=== PATIENT | female | born 1990 | race Caucasian/White ===

== ENCOUNTER 2019-03-21 21:01 | Emergency (ER) | payer OTHER ==
[2019-03-21 21:39] VITALS: BP 125/83; PULSE 92; TEMP 98.2; BMI 23.8
== END 2019-03-21 22:54 | disposition left against medical advice (07) ==
LOC: JER 21:01
DX: Z53.21 Procedure and treatment not carried out due to patient leaving prior to being seen by health care provider (principal)
CPT/HCPCS: 99281-25

== ENCOUNTER 2022-03-25 11:57 | Emergency (ER) | payer OTHER ==
[2022-03-25 12:16] VITALS: BMI 27.4
[2022-03-25] MEDS ORDERED: DEXTROSE 5%-LACTATED RINGERS 500 ML IV ONE ×2 (13:00→13:30)
[2022-03-25 13:11] VITALS: BP 102/62; PULSE 103; TEMP 98.1
[2022-03-25 13:49] LABS: EPI CELLS >36 /uL (0-25.1); HYALINE CASTS 7 /uL (0-3.1); URINE APPEARANCE CLOUDY; URINE BACTERIA 5670 /uL (0-1359); URINE BILIRUBIN 1+ (NEGATIVE); URINE COLOR DK YELLOW; URINE GLUCOSE (UA) NEGATIVE (NEGATIVE); URINE KETONE 4+ (NEGATIVE); URINE LEUK ESTERASE NEGATIVE (NEGATIVE); URINE NITRITE NEGATIVE (NEGATIVE); URINE PROTEIN 1+ (NEGATIVE); URINE WBC 15 /uL (0-25.8)
[2022-03-25 13:55] LABS: URINE RBC 20.7 /uL (0-23.9)
[2022-03-25 14:54] LABS: BASO % 0.4 % (0-2.0); EOS % 1.8 % (0-4.5); HEMATOCRIT 26.7 % (32.4-45.2); HEMOGLOBIN 8.9 GM/dL (10.7-15.3); LYMPH % 15.4 % (8-40); MCH 31.2 pg (25.7-33.7); MCHC 33.3 g/dl (32.0-36.0); MEAN CELL VOLUME 93.6 fl (80-96); MEAN PLT VOLUME 8.9 fl (7.5-11.1); MONO % 5.5 % (3.8-10.2); NEUT % 76.9 % (42.8-82.8); PLATELET COUNT 187 10^3/uL (134-434); RBC 2.86 M/mm3 (3.60-5.2); RDW 12.9 % (11.6-15.6); WHITE BLOOD COUNT 7.6 K/mm3 (4.0-10.0)
[2022-03-25 15:13] LABS: CALCIUM 8.7 mg/dL (8.5-10.1)
[2022-03-25 15:14] LABS: ALBUMIN 2.8 g/dl (3.4-5.0)
[2022-03-25 15:17] LABS: CREATININE 0.4 mg/dL (0.55-1.3)
[2022-03-25 15:18] LABS: BILIRUBIN,TOTAL 0.6 mg/dL (0.2-1); TOT PROT 5.8 g/dl (6.4-8.2)
== END 2022-03-25 15:53 | disposition home or self-care (01) ==
LOC: JER 11:57
PROC: 3E0337Z Introduction of Electrolytic and Water Balance Substance into Peripheral Vein, Percutaneous Approach (ICD-10-PCS; principal; 2022-03-25)
DX: O26.892 Other specified pregnancy related conditions, second trimester (principal); R10.9 Unspecified abdominal pain; Z3A.26 26 weeks gestation of pregnancy
CPT/HCPCS: 36415; 76775-TC; 76801-TC; 80053; 81003; 85025; 87086; 96360; 96361; 99284-25

== ENCOUNTER 2022-06-26 06:00 | Inpatient (IN) | payer OTHER ==
[2022-06-26 06:58] VITALS: BMI 27.1
[2022-06-26] MEDS ORDERED: SUCCINYLCHOLINE CHLORIDE 200 MG/10 ML SYRINGE ONE (07:58)
[2022-06-26] MEDS ORDERED: morphine SULFATE/PF 1 MG/2 ML (2cc Syringe - QUVA) ONE (07:58)
[2022-06-26] MEDS ORDERED: ePHEDrine SULFATE 50 MG/1 ML AMPULE ONE (08:01)
[2022-06-26] MEDS ORDERED: ELECTROLYTE-148 SOLN 500 ML IV ONE (08:03)
[2022-06-26] MEDS ORDERED: CITRIC ACID/SODIUM CITRATE 30 ML UNIT-DOSE CUP PO ONE (08:03)
[2022-06-26] MEDS ORDERED: ELECTROLYTE-148 SOLN 1,000 ML IV SCH (08:15)
[2022-06-26] MEDS ORDERED: SODIUM CHLORIDE 0.9% P/F 10 ML VIAL IJ ONE (09:02)
[2022-06-26] MEDS ORDERED: OXYTOCIN 10 UNITS/ML VIAL ONE (09:02)
[2022-06-26] MEDS ORDERED: ONDANSETRON 4 MG/2 ML VIAL ONE (09:02)
[2022-06-26] MEDS ORDERED: CLINDAMYCIN PHOSPHATE 900 MG/6 ML VIAL IVPB ONE (09:02)
[2022-06-26] MEDS ORDERED: METHYLERGONOVINE MALEATE 0.2 MG/1 ML AMP IM PRN (09:35)
[2022-06-26] MEDS ORDERED: IBUPROFEN 800 MG/8 ML IJ IVPB PRN (09:35)
[2022-06-26] MEDS ORDERED: ACETAMINOPHEN 325 MG TABLET (FP) PO PRN (09:35)
[2022-06-26] MEDS ORDERED: ONDANSETRON 4 MG/2 ML VIAL IVPUSH PRN (09:42)
[2022-06-26] MEDS ORDERED: morphine SULFATE/PF 1 MG/2 ML (2cc Syringe - QUVA) EP ONE (09:42)
[2022-06-26] MEDS ORDERED: OXYTOCIN 20 UNITS in 0.9% NS 20 UNIT/1,000 ML INFUS.BAG IV SCH (09:45)
[2022-06-26] MEDS: PRENATAL VITAMINS W/ FOLIC ACID TABLET (FP) PO SCH (11:17)
[2022-06-27] MEDS: IBUPROFEN 600 MG TABLET (FP) PO PRN ×3 (01:31→15:43)
[2022-06-27] MEDS: SIMETHICONE 80 MG TAB.CHEW (FP) PO PRN ×2 (01:32→23:12)
[2022-06-27] MEDS: oxyCODONE HCL 5 MG TABLET PO PRN ×3 (03:03→23:12)
[2022-06-27 08:47] LABS: BASO % 0.3 % (0-2.0); EOS % 0.8 % (0-4.5); HEMATOCRIT 32.1 % (32.4-45.2); HEMOGLOBIN 10.5 GM/dL (10.7-15.3); MCH 30.8 pg (25.7-33.7); MCHC 32.9 g/dl (32.0-36.0); MEAN CELL VOLUME 93.8 fl (80-96); MEAN PLT VOLUME 9.5 fl (7.5-11.1); MONO % 6.5 % (3.8-10.2); NEUT % 80.4 % (42.8-82.8); PLATELET COUNT 279 10^3/uL (134-434); RBC 3.42 M/mm3 (3.60-5.2); RDW 13.2 % (11.6-15.6); WHITE BLOOD COUNT 17.5 K/mm3 (4.0-10.0)
[2022-06-27] MEDS ORDERED: BISACODYL 10 MG SUPP.RECT RC PRN (09:35)
[2022-06-27] MEDS ORDERED: DIPHTH,PERTUSS(ACELL),TET 0.5 ML DISP.SYRIN IM ONE (10:00)
[2022-06-27] MEDS: PRENATAL VITAMINS W/ FOLIC ACID TABLET (FP) PO SCH (10:14)
[2022-06-27] MEDS: SENNOSIDES/DOCUSATE COMBO (SENNA PLUS) TABLET (UD) PO PRN (13:23)
[2022-06-27 15:29] LABS: HIV INTERPRETATION PRESUMPTIVE POSITIVE (NEGATIVE)
[2022-06-28] MEDS: SENNOSIDES/DOCUSATE COMBO (SENNA PLUS) TABLET (UD) PO PRN ×2 (01:36→22:59)
[2022-06-28] MEDS: IBUPROFEN 600 MG TABLET (FP) PO PRN ×4 (01:36→22:59)
[2022-06-28] MEDS: SIMETHICONE 80 MG TAB.CHEW (FP) PO PRN ×2 (10:10→19:09)
[2022-06-28] MEDS: oxyCODONE HCL 5 MG TABLET PO PRN ×2 (10:10→16:39)
[2022-06-28] MEDS: PRENATAL VITAMINS W/ FOLIC ACID TABLET (FP) PO SCH (10:10)
[2022-06-28 16:06] LABS: BASO % 0.6 % (0-2.0); EOS % 1.4 % (0-4.5); HEMATOCRIT 32.7 % (32.4-45.2); HEMOGLOBIN 10.7 GM/dL (10.7-15.3); LYMPH % 13.1 % (8-40); MCH 30.4 pg (25.7-33.7); MCHC 32.6 g/dl (32.0-36.0); MEAN PLT VOLUME 9.1 fl (7.5-11.1); MONO % 6.7 % (3.8-10.2); NEUT % 78.2 % (42.8-82.8); PLATELET COUNT 315 10^3/uL (134-434); RBC 3.51 M/mm3 (3.60-5.2); RDW 13.5 % (11.6-15.6); WHITE BLOOD COUNT 12.9 K/mm3 (4.0-10.0)
[2022-06-28 22:02] VITALS: RESP 18
[2022-06-29] MEDS: SIMETHICONE 80 MG TAB.CHEW (FP) PO PRN (03:04)
[2022-06-29] MEDS: oxyCODONE HCL 5 MG TABLET PO PRN (03:04)
[2022-06-29 08:36] VITALS: BP 115/74; PULSE 87; TEMP 98
[2022-06-29] MEDS: PRENATAL VITAMINS W/ FOLIC ACID TABLET (FP) PO SCH (11:17)
== END 2022-06-29 11:45 | disposition home or self-care (01) | DRG 540 ==
LOC: JLDR 06:00 → J3W 10:50
PROVIDERS: ADMIT Obstetrics & Gynecology; ATTEND Obstetrics & Gynecology
PROC: 10D00Z1 Extraction of Products of Conception, Low, Open Approach (ICD-10-PCS; principal; 2022-06-26)
DX: O34.211 Maternal care for low transverse scar from previous cesarean delivery (principal); Z3A.39 39 weeks gestation of pregnancy; Z37.0 Single live birth
CPT/HCPCS: 36415; 85025; 85461; 86900; 86999; 87389; 87536; 88307-TC; 90715